=== PATIENT | male | born 1995 | race Caucasian/White ===

== ENCOUNTER → 2018-01-26 | Outpatient (CLI) | payer BC | LOC: PREOP 06:08 | PROVIDERS: ATTEND Surgery | DX: Z01.818 Encounter for other preprocedural examination (principal) ==

== ENCOUNTER 2018-09-18 17:52 | Emergency (ER) | payer BC | END 2018-09-18 18:55 | disposition left against medical advice (07) | LOC: EDUNIT# 17:52 → ER 17:53 | DX: M54.5 Low back pain (principal); M54.2 Cervicalgia; V49.9XXA Car occupant (driver) (passenger) injured in unspecified traffic accident, initial encounter ==

== ENCOUNTER 2018-09-18 18:59 | Emergency (ER) | payer OTHER, BC ==
[~2018-09-18] VITALS: Ht 180.3 cm; Wt 77.1 kg
[2018-09-18] MEDS ORDERED: ONDANSETRON 8 MG (ZOFRAN) ORAL DISSOLVE TAB PO ONE (20:15)
[2018-09-18] MEDS ORDERED: ACETAMINOPHEN 500 MG TAB (TYLENOL) PO ONE (20:15)
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
[2018-09-18 21:59] VITALS: BP 127/96
== END 2018-09-18 22:00 | disposition short-term general hospital (02) ==
LOC: EDUNIT# 18:59 → ER 19:00
DX: S06.0X9A Concussion with loss of consciousness of unspecified duration, initial encounter (principal); R93.0 Abnormal findings on diagnostic imaging of skull and head, not elsewhere classified; M54.5 Low back pain; R40.2142 Coma scale, eyes open, spontaneous, at arrival to emergency department; R40.2252 Coma scale, best verbal response, oriented, at arrival to emergency department; R40.2362 Coma scale, best motor response, obeys commands, at arrival to emergency department; Z90.89 Acquired absence of other organs; Z87.19 Personal history of other diseases of the digestive system; V43.52XA Car driver injured in collision with other type car in traffic accident, initial encounter; Y92.410 Unspecified street and highway as the place of occurrence of the external cause
CPT/HCPCS: 70450; 72100; 72125